=== PATIENT | male | born 1975 ===

== ENCOUNTER 2018-11-25 07:29 | Day surgery (SDC) | payer OTHER ==
[~2018-11-25] VITALS: Ht 190.5 cm; Wt 111.0 kg
== END 2018-11-25 11:55 | disposition home or self-care (01) ==
LOC: ORSCSDS 07:29
PROVIDERS: Otolaryngology
PROC: 09TL0ZZ Resection of Nasal Turbinate, Open Approach (ICD-10-PCS; principal; 2018-11-25 09:00)
PROC: 09BM0ZZ Excision of Nasal Septum, Open Approach (ICD-10-PCS; principal; 2018-11-25 09:00)
DX: J34.2 Deviated nasal septum (principal); J34.3 Hypertrophy of nasal turbinates; Z87.891 Personal history of nicotine dependence
CPT/HCPCS: J1100; J2250; J2405; J2704; J3010; J7120